=== PATIENT | female | born 1995 | race Two or more races ===

== ENCOUNTER 2019-03-08 00:10 | Emergency (ER) | payer MEDICAID ==
[~2019-03-08] VITALS: Ht 160 cm; Wt 68.0 kg
--- NOTE | 2019-03-08 00:10 | NUR ---
ED Nurse Note: brought in by ambulance doritad ra 30 from home c/o seizure witnessed by mother. last known seizure in 2018. pt not on any medication. no oral trauma or general trauma present; skin intact. incontinence of the urine. patient sleeping; withdraws to light pain. changed into gown; attached to monitor; vss. mother at bedside.
--- NOTE | 2019-03-08 00:15 | NUR ---
ED Nurse Note: iv access established. blood and urine collected; sent down to lab.
--- NOTE | 2019-03-08 00:19 | Emergency Room Report ---
History of Present Illness General Chief Complaint: Seizure Source: Patient, EMS Present Illness HPI Patient presents with reports of witnessed seizure activity Patient's mom is here who reports that she saw a tonic-clonic seizure Patient has had seizures as a child and there was questionable last seizure when she was 15 upon arrival patient herself is Minimally responsive I am attempting to obtain medical report by paramedics if there was any medications given Mom denies any recent vomiting or diarrhea History of present illness continues to be limited At a late point the mom is at bedside she reports that the patient's birthday was recently and she had unknown amount of alcohol Patient also has awake and later in the exam and reports doing cocaine Allergies: Coded Allergies: No Known Allergies (Unverified , 03/08/19) Patient History Limited by: medical condition Past Medical History: see triage record Now: No - unk Reviewed Nursing Documentation: PMH: Agreed; PSxH: Agreed Nursing Documentation-PMH Hx Diabetes: Yes Hx Seizures: Yes Review of Systems All Other Systems: negative except mentioned in HPI Physical Exam Vital Signs Date Time Temp Pulse Resp B/P (MAP) Pulse Ox O2 Delivery O2 Flow Rate FiO2 03/08/19 00:01 99.0 88 18 114/70 (85) 98 Non-Rebreather 15.0 Sp02 EP Interpretation: reviewed, normal General Appearance: Stupor Head: normocephalic, atraumatic Eyes: bilateral eye PERRL ENT: normal pharynx Neck: supple Respiratory: lungs clear, no respiratory distress, no retraction Cardiovascular #1: regular rate, rhythm Gastrointestinal: non tender, soft Musculoskeletal: other - Patient withdraws from physical stimuli Neurologic: other - Patient withdraws from a physical stimuli otherwise not verbal not following commands Skin: no rash Lymphatic: no adenopathy Medical Decision Making Diagnostic Impression: Primary Impression: Alcohol abuse Additional Impression: Cocaine abuse ER Course Given the initial presentation multiple differentials and consideration including but not limited to neurological, neurosurgical, infectious metabolic disorder Mom also reports of the last time patient had a seizure was when she was 15 years old which is 9 years ago Patient's work-up reveals fairly elevated alcohol level cocaine is also positive patient observed for prolonged period of time during her stay patient had An episode of mild shaking appeared to be consistent with chills and mom reports that this is what she saw and felt was likely seizure activity Patient now is awake alert GCS 15 Feels improved and is stable for close outpatient follow-up Labs Test 03/08/19 00:15 White Blood Count 8.3 K/UL (4.8-10.8) Red Blood Count 4.32 M/UL (4.20-5.40) Hemoglobin 12.9 G/DL (12.0-16.0) Hematocrit 38.3 % (37.0-47.0) Mean Corpuscular Volume 89 FL (80-99) Mean Corpuscular Hemoglobin 29.8 PG (27.0-31.0) Mean Corpuscular Hemoglobin Concent 33.6 G/DL (32.0-36.0) Red Cell Distribution Width 11.0 % (11.6-14.8) Platelet Count 426 K/UL (150-450) Mean Platelet Volume 5.8 FL (6.5-10.1) Neutrophils (%) (Auto) 47.0 % (45.0-75.0) Lymphocytes (%) (Auto) 41.2 % (20.0-45.0) Monocytes (%) (Auto) 6.5 % (1.0-10.0) Eosinophils (%) (Auto) 4.2 % (0.0-3.0) Basophils (%) (Auto) 1.1 % (0.0-2.0) Urine Color Pale yellow Urine Appearance Clear Urine pH 6 (4.5-8.0) Urine Specific [place] 1.010 (1.005-1.035) Urine Protein Negative (NEGATIVE) Urine Glucose (UA) Negative (NEGATIVE) Urine Ketones Negative (NEGATIVE) Urine Blood 1+ (NEGATIVE) Urine Nitrite Negative (NEGATIVE) Urine Bilirubin Negative (NEGATIVE) Urine Urobilinogen Normal MG/DL (0.0-1.0) Urine Leukocyte Esterase Negative (NEGATIVE) Urine RBC 0-2 /HPF (0 - 2) Urine WBC 0 /HPF (0 - 2) Urine Squamous Epithelial Cells Few /LPF (NONE/OCC) Urine Bacteria None /HPF (NONE) Urine HCG, Qualitative Negative (NEGATIVE) Sodium Level 146 MMOL/L (136-145) Potassium Level 3.9 MMOL/L (3.5-5.1) Chloride Level 109 MMOL/L (98-107) Carbon Dioxide Level 26 MMOL/L (21-32) Anion Gap 11 mmol/L (5-15) Blood Urea Nitrogen 11 mg/dL (7-18) Creatinine 0.7 MG/DL (0.55-1.30) Estimat Glomerular Filtration Rate > 60 mL/min (>60) Glucose Level 104 MG/DL (74-106) Calcium Level 8.6 MG/DL (8.5-10.1) Total Bilirubin 0.2 MG/DL (0.2-1.0) Aspartate Amino Transf (AST/SGOT) 20 U/L (15-37) Alanine Aminotransferase (ALT/SGPT) 39 U/L (12-78) Alkaline Phosphatase 109 U/L (46-116) Total Protein 8.0 G/DL (6.4-8.2) Albumin 4.1 G/DL (3.4-5.0) Globulin 3.9 g/dL Albumin/Globulin Ratio 1.1 (1.0-2.7) Lipase 129 U/L (73-393) Urine Opiates Screen Negative (NEGATIVE) Urine Barbiturates Screen Negative (NEGATIVE) Phencyclidine (PCP) Screen Negative (NEGATIVE) Urine Amphetamines Screen Negative (NEGATIVE) Urine Benzodiazepines Screen Negative (NEGATIVE) Urine Cocaine Screen Positive (NEGATIVE) Urine Marijuana (THC) Screen Negative (NEGATIVE) Serum Alcohol 342 mg/dL Rhythm Strip Diag. Results EP Interpretation: yes Rate: 77 Rhythm: NSR, no PVC's, no ectopy CT/MRI/US Diagnostic Results CT/MRI/US Diagnostic Results : Impression CT head no acute disease Last Vital Signs Date Time Temp Pulse Resp B/P (MAP) Pulse Ox O2 Delivery O2 Flow Rate FiO2 03/08/19 00:01 99.0 88 18 114/70 (85) 98 Non-Rebreather 15.0 Status: improved Disposition: HOME, SELF-CARE Condition: Improved Scripts No Active Prescriptions or Reported Meds Additional Instructions: Patient is provided with the discharge instructions notified to follow up with primary doctor in the next 2-3 days otherwise return to the er with any worsening symptoms. Please note that this report is being documented using [employer] technology. This can lead to erroneous entry secondary to incorrect interpretation by the dictating instrument. Isabella Damon DO Mar 08, 2019 00:19
[2019-03-08 00:32] VITALS: BP 114/70
[2019-03-08 00:43] LABS: APPEARANCE,URINE CLEAR; BILIRUBIN, URINE NEGATIVE (NEGATIVE); COLOR,URINE PALE YELLOW; GLUCOSE, URINE (UA) NEGATIVE (NEGATIVE); KETONES,URINE NEGATIVE (NEGATIVE); LEUKOCYTE ESTERASE ,URINE NEGATIVE (NEGATIVE); NITRITE,URINE NEGATIVE (NEGATIVE); PH,URINE 6 (4.5-8.0); PROTEIN,URINE NEGATIVE (NEGATIVE); UROBILINOGEN,URINE NORMAL MG/DL (0.0-1.0)
[2019-03-08 00:50] LABS: BASOPHILS % (AUTO) 1.1 % (0.0-2.0); EOSINOPHILS % (AUTO) 4.2 % (0.0-3.0); HEMATOCRIT 38.3 % (37.0-47.0); HEMOGLOBIN 12.9 G/DL (12.0-16.0); LYMPHOCYTES % (AUTO) 41.2 % (20.0-45.0); MEAN CORPUSCULAR VOLUME 89 FL (80-99); MONOCYTES % (AUTO) 6.5 % (1.0-10.0); PLATELET COUNT 426 K/UL (150-450); RED BLOOD COUNT 4.32 M/UL (4.20-5.40); WHITE BLOOD COUNT 8.3 K/UL (4.8-10.8)
[2019-03-08 00:52] LABS: ANION GAP 11 mmol/L (5-15); BLOOD UREA NITROGEN 11 mg/dL (7-18); CALCIUM 8.6 MG/DL (8.5-10.1); CARBON DIOXIDE 26 MMOL/L (21-32); CHLORIDE 109 MMOL/L (98-107); CREATININE 0.7 MG/DL (0.55-1.30); POTASSIUM 3.9 MMOL/L (3.5-5.1); SODIUM 146 MMOL/L (136-145)
[2019-03-08 00:56] LABS: ALANINE AMINOTRANSFERASE 39 U/L (12-78); ALBUMIN 4.1 G/DL (3.4-5.0); ALBUMIN/GLOBULIN RATIO 1.1 (1.0-2.7); ALKALINE PHOSPHATASE 109 U/L (46-116); ASPARTATE AMINO TRANSFERASE 20 U/L (15-37); BILIRUBIN,TOTAL 0.2 MG/DL (0.2-1.0)
--- NOTE | 2019-03-08 01:53 | Diagnostic Imaging Report ---
Indications: Altered mental status Technique: Spiral acquisitions obtained through the brain. Angled axial and coronal 5 x 5 mm slices were reconstructed. Total dose length product 1720 mGycm. CTDI vol(s) 74 mGy. Dose reduction achieved using automated exposure control Comparison: None. Findings: No acute intracranial hemorrhage or edema. No mass effect nor midline shift. Normal white differentiation. Normal size ventricles and extra axial CSF spaces. Intact calvarium. Visualized orbits and sinuses are unremarkable. The mastoids are clear Impression: Negative This agrees with the preliminary interpretation provided overnight by [facility]erad[facility] service. The CT scanner at [facility] is accredited by the [employer] and the scans are performed using protocols designed to limit radiation exposure to as low as reasonably achievable to attain images of sufficient resolution adequate for diagnostic evaluation.
[2019-03-08 02:00] VITALS: BP 88/52
--- NOTE | 2019-03-08 02:00 | NUR ---
ED Nurse Note: patient remains hypotensive 88/52; 1L NS bolus given. spo2 85%; 2L nasal cannula attached. patient shaking; provided with warm blankets. notified ermd; no new orders at this time. will continue to monitor.
[2019-03-08 03:30] VITALS: BP 133/70
--- NOTE | 2019-03-08 03:31 | NUR ---
ED Nurse Note: patient awake alert and oriented x4. assisted to bathroom. patient ambulates steady.
[2019-03-08 04:00] VITALS: BP 133/70
--- NOTE | 2019-03-08 04:00 | NUR ---
ER DISCHARGE NOTE: Patient is cleared to be discharged per ERMD, pt is aox4, on room air, with stable vital signs. accompanied by parent. pt was given dc and prescription instructions, pt was able to verbalize understanding, pt id band and iv site removed without complications. pt is able to ambulate with steady gait. pt took all belongings.
== END 2019-03-08 04:00 | disposition home or self-care (01) ==
LOC: EDBD 00:10 → EMR 00:43
DX: F10.10 Alcohol abuse, uncomplicated (principal); F14.10 Cocaine abuse, uncomplicated; G40.909 Epilepsy, unspecified, not intractable, without status epilepticus; E11.9 Type 2 diabetes mellitus without complications
CPT/HCPCS: 36415; 70450; 80053; 80307; 81003; 81025; 83690; 85025; 96360; 96361; G0480; Z7502; 99284